=== PATIENT | male | born 1960 | race Caucasian/White ===

== ENCOUNTER 2018-12-29 19:50 | Inpatient (IN) | payer MEDICAID ==
[~2018-12-29] VITALS: Ht 177.8 cm; Wt 80.9 kg
[2018-12-29 20:39] VITALS: BP 123/79
[2018-12-29 20:47] LABS: BASOPHILS 0.1 % (0-2); EOSINOPHILS 3.7 % (0-7); HEMOGLOBIN 16.4 g/dL (13.5-17.5); IMMATURE GRANULOCYTES 0.3 % (0-5); LYMPHOCYTES 18.3 % (15-50); MCH 31.2 pg (26.0-34.0); MCHC 35.7 g/dL (31.0-37.0); MCV 87.5 fL (80.0-100.0); MEAN PLATELET VOLUME 9.5 fL (7.4-10.4); MONOCYTES 6.2 % (2-11); NEUTROPHILS 71.4 % (40-80); PLATELET COUNT 221 10x3/uL (130-400); RBC 5.26 10x6/uL (4.20-6.10); RDW 12.9 % (11.5-14.5); WBC 13.6 10x3/uL (4.8-10.8)
[2018-12-29 21:30] VITALS: BP 119/75
[2018-12-29 21:33] LABS: ALBUMIN 3.9 g/dL (3.4-5.0); ALKALINE PHOSPHATASE 269 U/L (46-116); ALT (SGPT) 202 U/L (10-68); BILIRUBIN - TOTAL 2.09 mg/dL (0.2-1.3); CALC OSMOLALITY 274 mosm/kg (275-300); CHLORIDE - SERUM 100 mmol/L (98-107); GLUCOSE 145 mg/dL (74-106); POTASSIUM - SERUM 3.4 mmol/L (3.5-5.1); PROTEIN - SERUM 6.9 g/dL (6.4-8.2); SODIUM 137 mmol/L (136-145); UREA NITROGEN 6 mg/dL (7-18); eGFR NON AFRICAN AMERICAN 82 mL/min (90-120)
[2018-12-29 21:34] LABS: LIPASE 11321 U/L (73-393); TROPONIN-I < 0.017 ng/mL (0.000-0.060)
[2018-12-29 22:34] VITALS: BP 134/78
[2018-12-29 23:00] VITALS: BP 129/74
--- NOTE | 2018-12-30 00:55 | NUR ---
PATIENT TO THE FLOOR VIA WHEELCHAIR. PATIENT IN BED RATING PAIN A 2 OUT OF 10. STARTED PATIENT'S FLUIDS AND WENT OVER HX AND MEDICATIONS. PATIENT HAS NO OTHER NEEDS AT THIS TIME.
[2018-12-30 01:01] VITALS: BP 120/70; BMI 25.5
[2018-12-30 03:29] LABS: UDS - AMPHET NEGATIVE QUAL (NEGATIVE); UDS - BARB NEGATIVE QUAL (NEGATIVE); UDS - BENZO NEGATIVE QUAL (NEGATIVE); UDS - COCAINE NEGATIVE QUAL (NEGATIVE); UDS - OPIATE POSITIVE QUAL (NEGATIVE); UDS - PCP NEGATIVE QUAL (NEGATIVE); UDS - THC POSITIVE QUAL (NEGATIVE)
[2018-12-30 03:50] LABS: APPEARANCE CLEAR (CLEAR); BILIRUBIN NEGATIVE (NEGATIVE); COLOR DK YELLOW (YELLOW); GLUCOSE NEGATIVE (NEGATIVE); KETONE NEGATIVE (NEGATIVE); NITRITE NEGATIVE (NEGATIVE); PROTEIN 1+ mg/dL (NEGATIVE); SPECIFIC GRAVITY 1.015 (1.005-1.020)
[2018-12-30 03:52] LABS: BACTERIA FEW /hpf (NONE SEEN); EPITHELIAL CELLS 0-5 /hpf (0-5); RED CELLS - URINE 0-5 /hpf (0-5); WHITE CELLS - URINE 0-5 /hpf (0-5)
[2018-12-30 04:30] VITALS: BP 98/54
[2018-12-30 05:02] LABS: BASOPHILS 0 % (0-2); EOSINOPHILS 0.3 % (0-7); IMMATURE GRANULOCYTES 0.3 % (0-5); LYMPHOCYTES 10.9 % (15-50); MCH 30.6 pg (26.0-34.0); MCHC 34.9 g/dL (31.0-37.0); MCV 87.8 fL (80.0-100.0); MONOCYTES 5.9 % (2-11); NEUTROPHILS 82.6 % (40-80); PLATELET COUNT 202 10x3/uL (130-400)
[2018-12-30 05:20] LABS: APTT 30.4 SECONDS (22.8-39.4); INR 1.07 (0.85-1.17); PROTIME 13.4 SECONDS (11.6-15.0)
[2018-12-30 05:31] LABS: ALBUMIN 3.2 g/dL (3.4-5.0); ALKALINE PHOSPHATASE 221 U/L (46-116); ALT (SGPT) 159 U/L (10-68); BILIRUBIN - TOTAL 0.62 mg/dL (0.2-1.3); CALC OSMOLALITY 279 mosm/kg (275-300); CALCIUM 8.2 mg/dL (8.5-10.1); CARBON DIOXIDE 30.9 mmol/L (21.0-32.0); CHLORIDE - SERUM 103 mmol/L (98-107); GLUCOSE 117 mg/dL (74-106); MAGNESIUM - SERUM 1.6 mg/dL (1.8-2.4); PHOSPHOROUS 3.6 mg/dL (2.5-4.9); POTASSIUM - SERUM 3.6 mmol/L (3.5-5.1); PROTEIN - SERUM 6.3 g/dL (6.4-8.2); SODIUM 141 mmol/L (136-145); UREA NITROGEN 7 mg/dL (7-18); eGFR NON AFRICAN AMERICAN 82 mL/min (90-120)
[2018-12-30 05:50] LABS: AMYLASE - SERUM 430 U/L (25-115); LIPASE 3103 U/L (73-393)
--- NOTE | 2018-12-30 07:31 | NUR ---
GAVE 2MG OF MORPHINE FOR PAIN LEVEL OF 7/10. PT A/O X4, RESP EVEN AND NONLABORED ON RA. LT AC INFUSING NS AT 100CC/HR. PT ASKING IF HE CAN HAVE SOMETHING TO DRINK, INFORMED PT THAT HE IS NPO AND IS NOT ABLE TO HAVE ANYTHING RIGHT NOW. PT DENIES ANY OTHER NEEDS AT THIS TIME. CALL LIGHT IN REACH, NAD NOTED,WILL CONTINUE TO MONITOR.
[2018-12-30 09:59] VITALS: BP 117/66
[2018-12-30 11:05] VITALS: Ht 177.8 cm; Wt 80.9 kg
[2018-12-30 14:05] VITALS: BP 119/74
--- NOTE | 2018-12-30 15:03 | NUR ---
GAVE 1MG OF DILAUDID FOR PAIN LEVEL OF 8/10. PT DENIES ANY OTHER NEEDS AT THIS TIME. CALL LIGHT IN REACH, NAD NOTED,W ILL CONTINUE TO MONITOR.
[2018-12-30 17:31] VITALS: BP 117/73
[2018-12-30 20:00] VITALS: BP 131/77
--- NOTE | 2018-12-30 22:56 | NUR ---
REC'D. AT CHGE OF SHIFT WALKING ROUNDS EYES CLOSED RESP DEEP AND EVEN. NO DISTRESS OBSERVED AT PRESENT TIME. WILL CONTINUE TO MONITOR FOR ANY CHGES. AND FOLLOW CURRENT PLAN OF CARE.
--- NOTE | 2018-12-30 23:01 | NUR ---
C/O ABDOMINAL PAIN. RATING PAIN 8 ON PAIN SCALE.DILAUDID 1MG GIVEN SLOW IN TITRATED WITH 1CC NS FOR RELIEF. WILL CONTINUE TO MONITOR FOR ANY CHGES. AND FOLLOW CURRENT PLAN OF CARE
[2018-12-31] VITALS: BP 116/75
[2018-12-31 04:17] LABS: HEMATOCRIT 41.5 % (42.0-54.0); HEMOGLOBIN 14.3 g/dL (13.5-17.5); MCH 30.6 pg (26.0-34.0); MCHC 34.5 g/dL (31.0-37.0); MCV 88.7 fL (80.0-100.0); MEAN PLATELET VOLUME 9.8 fL (7.4-10.4); PLATELET COUNT 178 10x3/uL (130-400); RBC 4.68 10x6/uL (4.20-6.10); RDW 13.3 % (11.5-14.5); WBC 24.1 10x3/uL (4.8-10.8)
[2018-12-31 04:33] LABS: ALBUMIN 2.8 g/dL (3.4-5.0); ALKALINE PHOSPHATASE 165 U/L (46-116); BILIRUBIN - TOTAL 0.79 mg/dL (0.2-1.3); CALCIUM 7.8 mg/dL (8.5-10.1); CARBON DIOXIDE 29.9 mmol/L (21.0-32.0); CHLORIDE - SERUM 103 mmol/L (98-107); CREATININE - SERUM 0.9 mg/dL (0.6-1.3); GLUCOSE 101 mg/dL (74-106); LIPASE 257 U/L (73-393); MAGNESIUM - SERUM 1.9 mg/dL (1.8-2.4); PHOSPHOROUS 2.7 mg/dL (2.5-4.9); POTASSIUM - SERUM 3.6 mmol/L (3.5-5.1); PROTEIN - SERUM 5.9 g/dL (6.4-8.2); SODIUM 139 mmol/L (136-145); eGFR NON AFRICAN AMERICAN > 90 mL/min (90-120)
[2018-12-31 04:34] LABS: AMYLASE - SERUM 50 U/L (25-115); CALC OSMOLALITY 276 mosm/kg (275-300); UREA NITROGEN 9 mg/dL (7-18)
[2018-12-31 04:35] LABS: ALT (SGPT) 93 U/L (10-68)
[2018-12-31 04:41] LABS: LYMPHOCYTES 8 % (15-50); NEUTROPHILS 88 % (40-80)
[2018-12-31 04:42] LABS: PLATELET ESTIMATE DECREASED
[2018-12-31 05:43] VITALS: BP 106/72
--- NOTE | 2018-12-31 07:41 | NUR ---
ROUNDING DONE WITH PATIENT RECEIVING SOME IV DILAUDID FOR PAIN. TO BE NPO PAST MIDNIGHT TONIGHT FOR SURGERY IN AM. LEFT AC PIC SEEN WITH NS INFUSING AT 100 CC/HR. PLACED ON HEART MONITOR SHOWING SR, HR 73. ON EP, K+ IS 3.6. INSTRUCTED IN NEEDING UA. ON ROOM AIR. WILL MONITOR.
--- NOTE | 2018-12-31 08:38 | NUR ---
0837-REFUSED NICOTINE PATCH. PLACED BACK IN OMNICELL. VOMITING WITH APPROX. 150 CC GREEN LIQUID. ZOFRAN GIVEN FOR NAUSEA. ASKED PATIENT IF HE WANTED TO BE ON CLEAR LIQUIDS, STATES YES FOR LUNCH. NIGHTS OUT SO PATIENT CAN RELAX WITH MEDICATION.
[2018-12-31 09:16] VITALS: BP 108/78
--- NOTE | 2018-12-31 11:43 | NUR ---
PATIENT IS REQUESTING OTHER PAIN MEDICATION HE STATES THE DILAUDID IS MAKING HIM SICK. PAGE INTO ILAN POLLOCK APN. AWAITING NEW ORDERS.
--- NOTE | 2018-12-31 13:05 | NUR ---
1251-OP PERMITS SIGNED AND WITNESSED FOR TOMORROW. URINE SENT TO LAB ORDERED.
[2018-12-31 13:20] VITALS: BP 115/65
[2018-12-31 16:45] VITALS: BP 97/66
--- NOTE | 2018-12-31 19:36 | NUR ---
REPORT RECEIVED FROM DAY SHIFT, PT CARE ASSUMED. INTRODUCED SELF AND WROTE NAME ON BOARD. PT LYING IN BED, AAOX4. DENIES ANY NEEDS AT THIS TIME. BED IN LOWEST POSITION, SR X2, CALL LIGHT WITHIN REACH. WILL CONTINUE TO MONITOR.
[2018-12-31 21:32] VITALS: BP 111/69
[2019-01-01 01:03] VITALS: BP 125/823
[2019-01-01 06:42] LABS: BASOPHILS 0.1 % (0-2); EOSINOPHILS 0.3 % (0-7); HEMOGLOBIN 13.4 g/dL (13.5-17.5); IMMATURE GRANULOCYTES 0.2 % (0-5); LYMPHOCYTES 11.8 % (15-50); MCH 30.7 pg (26.0-34.0); MCHC 34.4 g/dL (31.0-37.0); MCV 89.4 fL (80.0-100.0); MEAN PLATELET VOLUME 9.4 fL (7.4-10.4); NEUTROPHILS 80.6 % (40-80); PLATELET COUNT 175 10x3/uL (130-400); RBC 4.36 10x6/uL (4.20-6.10); RDW 13.2 % (11.5-14.5); WBC 18.1 10x3/uL (4.8-10.8)
--- NOTE | 2019-01-01 06:49 | NUR ---
ROUNDING DONE WITH PAITENT LAYING ON LEFT SIDE RESTING WITH EYES CLOSED. RESP ARE EVEN. NS INFUSING TO LEFT AC AT 100 CC/HR. PATIENT IS NPO FOR SURGERY THIS AM. ON HEART MONITOR.
[2019-01-01 06:50] VITALS: BP 126/85
[2019-01-01 06:59] LABS: ALBUMIN 2.7 g/dL (3.4-5.0); ALKALINE PHOSPHATASE 135 U/L (46-116); BILIRUBIN - TOTAL 0.69 mg/dL (0.2-1.3); CALC OSMOLALITY 277 mosm/kg (275-300); CARBON DIOXIDE 30.9 mmol/L (21.0-32.0); CHLORIDE - SERUM 105 mmol/L (98-107); CREATININE - SERUM 0.9 mg/dL (0.6-1.3); GLUCOSE 91 mg/dL (74-106); PHOSPHOROUS 2.1 mg/dL (2.5-4.9); POTASSIUM - SERUM 3.5 mmol/L (3.5-5.1); PROTEIN - SERUM 5.4 g/dL (6.4-8.2); SODIUM 140 mmol/L (136-145); UREA NITROGEN 11 mg/dL (7-18); eGFR NON AFRICAN AMERICAN > 90 mL/min (90-120)
[2019-01-01 07:00] LABS: ALT (SGPT) 59 U/L (10-68)
--- NOTE | 2019-01-01 07:42 | NUR ---
TO OR VIA BED.
--- NOTE | 2019-01-01 11:30 | NUR ---
RETURNS FROM THE OR WITH 5 BANDAIDS TO ABDOMINAL AREA. ON 3L PER NC. IV INFUSING TO LEFT AC. WILL CONTINUE TO MONITOR. FAMILY AT BEDSIDE.
[2019-01-01 12:00] VITALS: BP 106/62
--- NOTE | 2019-01-01 12:38 | NUR ---
PATIENT TO EAT SOME LUNCH, DENIES NEEDS AT THIS TIME EXCEPT HAVING PAIN WHEN HE COUGHED. EXPLAINED HOW TO SPLINT HIS ABDOMEN WHEN HE COUGHS.
--- NOTE | 2019-01-01 13:13 | NUR ---
VSS STABLE, NOW ON ROOM AIR. DENIES NEEDS. INSTRCUTED TO LET US KNOW IF NEEDING TO USE RESTROOM FOR FIRST TIME SINCE BACK FROM SURGERY.
--- NOTE | 2019-01-01 14:09 | NUR ---
Nutrition Follow-up: S/p steff krueger today. Per nurse, pt was able to eat a little lunch. Diet: Diabetic Wt: 183# Last BM: 12/29 per chart Labs reviewed Meds reviewed May consider changing to regular diet; no h/o DM noted. RD following.
--- NOTE | 2019-01-01 14:29 | NUR ---
PATIENT UP IN HALLWAY GETTING SOME WATER. JANESSA ORTIZ.
--- NOTE | 2019-01-01 14:40 | NUR ---
RESTING WITH EYES CLOSED, RESP ARE EVEN.
--- NOTE | 2019-01-01 15:41 | NUR ---
IV INFILTTRATING TO LEFT AC. RE-SITED TO LEFT WRIST X 2 STICKS PER THIS NURSE WITH 22 G.
--- NOTE | 2019-01-01 16:15 | NUR ---
LINEN CHANGE DONE PER THIS NURSE.
[2019-01-01 16:30] VITALS: BP 132/86
--- NOTE | 2019-01-01 18:34 | NUR ---
UP AMBULATING AROUND NURSE STATION.
--- NOTE | 2019-01-01 18:46 | MORECARE ---
CASE MANAGEMENT DISCHARGE SUMMARY PATIENT: ADI FREDERICK UNIT: [id number] ADM DATE: 12/29/18 AGE: 58 : 62 SEX: M ROOM/BED: D.2139 AUTHOR: CHICA,DOC PHYSICIAN: REFERRING PHYSICIAN: CHRISTOPHER VILLEGAS MD DATE OF SERVICE: 01/01/19 Discharge Plan Patient Name: ADI FREDERICK Facility: [facility]:[place] : 1960 Planned Disposition: Home Anticipated Discharge Date: Discharge Date: Expected LOS: Initial Reviewer: [email or web address] Initial Review Date: 01/01/2019 Generated: 01/01/19 7:46 pm Comments DCP- Discharge Planning Updated by [id number]: Johnathan Sung on 01/01/19 5:[address] Patient Name: ADI FREDERICK Admission Status: ER Accout number: [id number] Admission Date: 12-29-2018 : 1960 Admission Diagnosis:UNSPECIFIED ABDOMINAL PAIN Attending: CHRISTOPHER VILLEGAS Current LOS: 3 Anticipated DC Date: Planned Disposition: Home Primary Insurance: MEDICAID [place] PENDING Discharge Planning Comments: CM MET WITH PT IN ROOM TO DISCUSS DISCHARGE PLANNING AND NEEDS. PT REPORTS LIVING AT HOME INDEPENDENTLY AND ALONE AND HIS ADULT DAUGHTER WILL BE STAYING WITH HIM FOR A SHORT TIME. PT HAS NO MEDICAL EQUIPMENT AND NO OUTSIDE SERVICES ASSISTING IN THE HOME. CM DISCUSSED AVAILABILITY OF HOME HEALTH, REHAB SERVICES AND MEDICAL EQUIPMENT. PT DENIES DISCHARGE NEEDS, REPORTS HIS NEIGHBOR WILL PICK HIM UP FOR DISCHARGE HOME General I Farmworker: Johnathan Sung DCPIA - Discharge Planning Initial Assessment Updated by [id number]: Johnathan Sung on 01/01/19 6:44 pm * Is the patient Alert and Oriented? Yes * How many steps to enter\exit or inside your home? * PCP NONE, WAS SEEING DR. CANTRELL PRIOR TO THE DOCTOR RETIRING * Pharmacy [facility] * Preadmission Environment Home with Family * ADLs Independent * Equipment None * Other Equipment NO MEDICAL EQUIPMENT PROVIDER PREFERENCE * List name and contact numbers for known caregivers / representatives who currently or will assist patient after discharge: CYNDEE FREDERICK, MOTHER, * Verbal permission to speak to the caregivers and representatives has been obtained from the patient. N/A * Community resources currently utilized None * Please name any agencies selected above. NONE * Additional services required to return to the preadmission environment? No * Can the patient safely return to the preadmission environment? Yes * Has this patient been hospitalized within the prior 30 days at any hospital? No Patient Name: ADI FREDERICK Page [id number] at 1846 All edits/amendments must be made on the electronic document DICTATION DATE: 01/01/191845 STRUCTURAL DRAFTSMAN: ANNE 01/01/191845 RPT#: [id number] DC DATE: STATUS: ADM IN [facility] [address] [place] [address] END OF REPORT
--- NOTE | 2019-01-01 19:00 | NUR ---
PT CARE ASSUMED. BEDSIDE SHIFT REPORT COMPLETE. PT AMBULATING IN HALLWAY AT THIS TIME. DENIES NEEDS. RR EVEN AND UNLABORED. NO S/S OF DISTRESS NOTED. NO NEEDS EXPRESSED. CALL LIGHT IN REACH. WILL CTM.
[2019-01-01 20:00] VITALS: BP 113/76
[2019-01-02] VITALS: BP 129/70
[2019-01-02 04:00] VITALS: BP 100/74
[2019-01-02 06:04] LABS: ALBUMIN 2.7 g/dL (3.4-5.0); ALKALINE PHOSPHATASE 118 U/L (46-116); ALT (SGPT) 59 U/L (10-68); BILIRUBIN - TOTAL 0.44 mg/dL (0.2-1.3); CALC OSMOLALITY 276 mosm/kg (275-300); CARBON DIOXIDE 27.5 mmol/L (21.0-32.0); CHLORIDE - SERUM 104 mmol/L (98-107); CREATININE - SERUM 0.8 mg/dL (0.6-1.3); GLUCOSE 94 mg/dL (74-106); MAGNESIUM - SERUM 2.1 mg/dL (1.8-2.4); POTASSIUM - SERUM 3.4 mmol/L (3.5-5.1); PROTEIN - SERUM 6.3 g/dL (6.4-8.2); SODIUM 139 mmol/L (136-145); UREA NITROGEN 10 mg/dL (7-18); eGFR NON AFRICAN AMERICAN > 90 mL/min (90-120)
[2019-01-02 06:17] LABS: BASOPHILS 0.1 % (0-2); EOSINOPHILS 0.2 % (0-7); HEMATOCRIT 39.7 % (42.0-54.0); HEMOGLOBIN 13.4 g/dL (13.5-17.5); IMMATURE GRANULOCYTES 0.4 % (0-5); LYMPHOCYTES 19.6 % (15-50); MCH 30.2 pg (26.0-34.0); MCHC 33.8 g/dL (31.0-37.0); MCV 89.4 fL (80.0-100.0); MEAN PLATELET VOLUME 9.7 fL (7.4-10.4); MONOCYTES 6.8 % (2-11); NEUTROPHILS 72.9 % (40-80); RBC 4.44 10x6/uL (4.20-6.10); RDW 13.3 % (11.5-14.5); WBC 17.6 10x3/uL (4.8-10.8)
[2019-01-02 06:35] LABS: PLATELET COUNT 215 10x3/uL (130-400)
[2019-01-02 08:30] VITALS: BP 116/76
--- NOTE | 2019-01-02 08:42 | NUR ---
PATIENT IS UP WALKING THE FLOOR. ASKED WHEN HE WILL GET TO GO HOME. HE IS REQUESTING PAIN AND NAUSEA MEDICATION.
[2019-01-02] MEDS ORDERED: PROTONIX40 MG PO (10:00)
[2019-01-02] MEDS ORDERED: HYDROCODON-ACE1 EAC7 PO (10:48)
--- NOTE | 2019-01-02 13:07 | NUR ---
PATIENT HAS BEEN DISCHARGED. ALL DISCHARGE TEACHING HAS BEEN DONE AND PAPERS SIGNED. ALL PATIENT BELONGINGS HAVE BEEN PACKED UP AND TAKEN HOME WITH PATIENT. HE WENT DOWNSTAIRS IN A WHEEL CHAIR. IV REMOVED WITH CATHETER INTACT PATIENT TOLERATED.HEAD TO TOE ASSESSMENT IS COMPLETE AND I CONCUR WITH PREVIOUS ASSESSMENT , AND NO NOTABLE CHANGES HAVE OCCURED.
--- NOTE | 2019-01-04 09:04 | MORECARE ---
CASE MANAGEMENT DISCHARGE SUMMARY PATIENT: ADI FREDERICK UNIT: [id number] ADM DATE: 12/29/18 AGE: 58 : 62 SEX: M ROOM/BED: D.2134 AUTHOR: CHICADOC PHYSICIAN: REFERRING PHYSICIAN: CHRISTOPHER VILLEGAS MD DATE OF SERVICE: 01/04/19 Discharge Plan Patient Name: ADI FREDERICK Facility: [facility]:[place] : 1960 Planned Disposition: Home Anticipated Discharge Date: 01/02/19 Discharge Date: 01/02/2019 Expected LOS: 4 Initial Reviewer: [email or web address] Initial Review Date: 01/01/2019 Generated: 01/04/19 10:04 am Comments DCP- Discharge Planning Updated by [id number]: Johnathan Sung on 01/01/19 5:[address] Patient Name: ADI FREDERICK Admission Status: ER Accout number: [id number] Admission Date: 12-29-2018 : 1960 Admission Diagnosis:UNSPECIFIED ABDOMINAL PAIN Attending: CHRISTOPHER VILLEGAS Current LOS: 3 Anticipated DC Date: Planned Disposition: Home Primary Insurance: MEDICAID [place] PENDING Discharge Planning Comments: CM MET WITH PT IN ROOM TO DISCUSS DISCHARGE PLANNING AND NEEDS. PT REPORTS LIVING AT HOME INDEPENDENTLY AND ALONE AND HIS ADULT DAUGHTER WILL BE STAYING WITH HIM FOR A SHORT TIME. PT HAS NO MEDICAL EQUIPMENT AND NO OUTSIDE SERVICES ASSISTING IN THE HOME. CM DISCUSSED AVAILABILITY OF HOME HEALTH, REHAB SERVICES AND MEDICAL EQUIPMENT. PT DENIES DISCHARGE NEEDS, REPORTS HIS NEIGHBOR WILL PICK HIM UP FOR DISCHARGE HOME Plastic Jig And Fixture Builder: Johnathan Sung DCPIA - Discharge Planning Initial Assessment Updated by [id number]: Johnathan Sung on 01/01/19 6:44 pm * Is the patient Alert and Oriented? Yes * How many steps to enter\exit or inside your home? * PCP NONE, WAS SEEING DR. CANTRELL PRIOR TO THE DOCTOR RETIRING * Pharmacy [facility] * Preadmission Environment Home with Family * ADLs Independent * Equipment None * Other Equipment NO MEDICAL EQUIPMENT PROVIDER PREFERENCE * List name and contact numbers for known caregivers / representatives who currently or will assist patient after discharge: CYNDEE FREDERICK, MOTHER, * Verbal permission to speak to the caregivers and representatives has been obtained from the patient. N/A * Community resources currently utilized None * Please name any agencies selected above. NONE * Additional services required to return to the preadmission environment? No * Can the patient safely return to the preadmission environment? Yes * Has this patient been hospitalized within the prior 30 days at any hospital? No Last DP export: 01/01/19 5:46 p Patient Name: AID FREDERICK Page [id number] at 0904 All edits/amendments must be made on the electronic document DICTATION DATE: 01/04/19903 ASSISTANT FINANCE MANAGER: ANNE 01/04/19903 RPT#: [id number] DC DATE:01/02/19 STATUS: DIS IN [facility] [address] [place] [address] END OF REPORT
--- NOTE | 2019-01-05 02:19 | NUR ---
LATE ENTRY, STOP TIME FOR ZOSYN 12/29/18 AT 2698
== END 2019-01-02 13:09 | disposition home or self-care (01) | DRG 417 ==
LOC: D.ER 19:50 → D.M2 22:38
PROVIDERS: Family Medicine; Surgery; ADMIT Internal Medicine Nephrology; ATTEND Internal Medicine Nephrology
PROC: 0FB04ZX Excision of Liver, Percutaneous Endoscopic Approach, Diagnostic (ICD-10-PCS; 2019-01-01)
PROC: 0FT44ZZ Resection of Gallbladder, Percutaneous Endoscopic Approach (ICD-10-PCS; principal; 2019-01-01 13:15)
DX: K80.50 Calculus of bile duct without cholangitis or cholecystitis without obstruction (principal); K85.10 Biliary acute pancreatitis without necrosis or infection; F17.213 Nicotine dependence, cigarettes, with withdrawal; E87.6 Hypokalemia; E83.42 Hypomagnesemia; F12.90 Cannabis use, unspecified, uncomplicated